=== PATIENT | male | born 1945 | race Caucasian/White ===

== ENCOUNTER 2020-07-02 05:53 | Day surgery (SDC) | payer OTHER ==
[2020-06-25 11:00] LABS: BASOPHILS % (AUTO) 0.5 % (0.0-5.0); EOSINOPHILS % (AUTO) 2.7 % (0.0-8.0); LYMPHOCYTES % (AUTO) 23.4 % (21.0-51.0); MEAN CORPUSCULAR HEMOGLOBIN 30.5 pg (27.0-33.0); MEAN CORPUSCULAR HGB CONC 32.6 g/dL (32.0-36.0); MEAN CORPUSCULAR VOLUME 93.6 fL (79-99); NEUTROPHILS % (AUTO) 63.1 % (40.0-77.0); PLATELET COUNT (AUTO) 252 K/uL (130-400); RED BLOOD CELL COUNT(AUTO) 4.06 MIL/uL (4.50-6.20); RED CELL DISTRIBUTION WIDTH 14.4 % (11.0-15.5); WHITE BLOOD COUNT (AUTO) 7.4 K/uL (4.8-10.8)
[2020-06-25 11:07] LABS: CREATININE 0.8 mg/dL (0.5-1.5); POTASSIUM 4.4 mmol/L (3.5-5.1)
--- NOTE | 2020-06-30 16:07 | NUR ---
PT POSITIVE COVID RESULT REPORTED TO [facility] INFECTION CONTROL. PT HAS HAD COVID IN MAY. PT IS NOT SYMPTOMATIC. PT OK TO PROCEED WITH SURGERY.
[2020-07-01 08:49] VITALS: BP 145/74
[~2020-07-02] VITALS: Ht 167.6 cm; Wt 86.5 kg
[2020-07-02] VITALS (16 sets, daily range): BP systolic 83–118; BP diastolic 40–69
[~2020-07-02 05:53] MED LIST: ASPI-556 PO; GLUC100019 PO; LATA7.5D OU; LISI-613 PO; METO25TA6 PO; RANITIDINE PO; SILD20TA14 PO; TIMO.25OS OU; VIT1CAPS47 PO
[2020-07-02] MEDS ORDERED: CEFAZOLIN SODIUM 1 GM VIAL ONE (06:36)
[2020-07-02] MEDS ORDERED: SODIUM CHLORIDE 0.9% 10 ML VIAL ONE (06:36)
[2020-07-02] MEDS ORDERED: SODIUM CHLORIDE 0.9% 1000ML 1,000 ML IV ONE (06:36)
[2020-07-02] MEDS: CEFAZOLIN SODIUM 1 GM VIAL IVP ONE ×2 (07:02→08:11)
[2020-07-02] MEDS ORDERED: SUCCINYLCHOLINE CHLORIDE 20 MG/ML 10 ML VIAL ONE (07:07)
[2020-07-02] MEDS ORDERED: LIDOCAINE PF 2% 5ML ABBOJECT ONE (07:07)
[2020-07-02] MEDS ORDERED: DEXAMETHASONE SOD PHOSPHATE 10MG/ML 1ML VIAL ONE (07:07)
[2020-07-02] MEDS ORDERED: MIDAZOLAM HCL 1 MG/ML 2ML VIAL ONE (07:08)
[2020-07-02] MEDS ORDERED: PROPOFOL 10 MG/ML 20ML VIAL IV ONE (07:08)
[2020-07-02] MEDS ORDERED: ONDANSETRON HCL 4 MG/2 ML VIAL ONE (07:08)
[2020-07-02] MEDS ORDERED: GLYCOPYRROLATE 1 MG/5 ML SYRINGE ONE (07:08)
[2020-07-02] MEDS ORDERED: NEOSTIGMINE 5MG/5ML SYR IV ONE (07:08)
[2020-07-02] MEDS ORDERED: FENTANYL CITRATE PF 50 MCG/1 ML 2ML VIAL ONE (07:09)
[2020-07-02] MEDS ORDERED: ROCURONIUM 10MG/1ML SYR 10 MG/ML ML ONE (07:09)
[2020-07-02] MEDS ORDERED: PHENYLEPHRINE HCL 10 MG/ML 1ML VIAL IV ONE (08:54)
[2020-07-02] MEDS ORDERED: IBUP-2070 PO (09:16)
[2020-07-02] MEDS ORDERED: CEPH500B PO (09:16)
[2020-07-02] MEDS ORDERED: ACET1TAB25 PO (09:16)
--- NOTE | 2020-07-02 10:10 | NUR ---
PATIENT ARRIVED TO DAY PATIENT VIA STRETCHER BY GUANACO LEVINE. PATIENT AAOX3, VITAL SIGNS STABLE, DENIES ANY PAIN AT THIS TIME. MAIKEL WRAP IN PLACE TO LEFT KNEE, DRY/INTACT.
--- NOTE | 2020-07-02 10:40 | NUR ---
PATIENT DISCHARGED FROM FACILITY VIA WHEELCHAIR BY NURSE. PATIENT ASSISTED INTO PRIVATE VEHICLE DRIVEN BY SPOUSE.
[2020-07-02 13:58] LABS: APPEARANCE BODY FLUID SLIGHTLY CLOUDY (CLEAR); BODY FLUID WBC 18 /cu. mm.; COLOR,BODY FLUID LT YELLOW (LT YELLOW); SPECIMENTYPE,BODY FLUID ASPIRATE; TOTAL VOLUME,BODY FLUID 1 mL
[2020-07-02 14:00] LABS: BODY FLUID RBC 905 /cu. mm.
[2020-07-02 14:03] LABS: BF LYMPHOCYTE 33 %; BF MONOCYTE 32 %
== END 2020-07-02 10:40 | disposition home or self-care (01) ==
LOC: DAH 05:53
PROVIDERS: ATTEND Orthopaedic Surgery
DX: M25.562 Pain in left knee (principal); G89.29 Other chronic pain; U07.1 COVID-19; I10 Essential (primary) hypertension; I25.10 Atherosclerotic heart disease of native coronary artery without angina pectoris; E11.9 Type 2 diabetes mellitus without complications; E78.5 Hyperlipidemia, unspecified; I48.19 Other persistent atrial fibrillation; Z88.8 Allergy status to other drugs, medicaments and biological substances; Z96.652 Presence of left artificial knee joint; Z98.890 Other specified postprocedural states; Z79.01 Long term (current) use of anticoagulants; Z85.828 Personal history of other malignant neoplasm of skin; Z95.5 Presence of coronary angioplasty implant and graft; Z90.49 Acquired absence of other specified parts of digestive tract; Z82.49 Family history of ischemic heart disease and other diseases of the circulatory system; Z72.89 Other problems related to lifestyle; Z79.899 Other long term (current) drug therapy
CPT/HCPCS: 27334; 29873; 36415; 80048; 82948 ×2; 85025; 87071; 87076; 87205; 89051; A4215; A4221; A4222; A4223 ×2; A4606; A4649 ×3; A4657; A4663; A4930; A6223; C9803; J0330; J0690; J1100; J2001; J2250; J2370; J2405; J2704; J2710; J3010; J3490; J7030; U0003

== ENCOUNTER 2020-09-01 06:47 | Day surgery (SDC) | payer OTHER ==
[2020-08-29 09:24] LABS: BASOPHILS % (AUTO) 0.9 % (0.0-5.0); EOSINOPHILS % (AUTO) 4.3 % (0.0-8.0); HEMATOCRIT 43.2 % (42-54); LYMPHOCYTES % (AUTO) 33.3 % (21.0-51.0); MEAN CORPUSCULAR HEMOGLOBIN 30.3 pg (27.0-33.0); MEAN CORPUSCULAR HGB CONC 32.6 g/dL (32.0-36.0); MEAN CORPUSCULAR VOLUME 92.9 fL (79-99); MONOCYTES % (AUTO) 10.4 % (3.0-13.0); NEUTROPHILS % (AUTO) 50.9 % (40.0-77.0); PLATELET COUNT (AUTO) 243 K/uL (130-400); RED BLOOD CELL COUNT(AUTO) 4.65 MIL/uL (4.50-6.20); RED CELL DISTRIBUTION WIDTH 13.8 % (11.0-15.5); WHITE BLOOD COUNT (AUTO) 5.9 K/uL (4.8-10.8)
[2020-08-29 09:34] LABS: POTASSIUM 4.1 mmol/L (3.5-5.1)
[2020-08-29 13:44] VITALS: BP 136/80
[~2020-09-01] VITALS: Ht 165.1 cm; Wt 86.2 kg
[2020-09-01] VITALS (11 sets, daily range): BP systolic 121–135; BP diastolic 66–82
[2020-09-01] MEDS: CEFAZOLIN SODIUM 1 GM VIAL IVP SCH ×3 (05:00→09:25)
[~2020-09-01 06:47] MED LIST changes: +ACET-2247 PO; -ASPI-556 PO; +GLUC-145 PO; -GLUC100019 PO; -LISI-613 PO; +LISI10TA24 PO; +OMEP20CA12 PO; -RANITIDINE PO; -SILD20TA14 PO
[2020-09-01] MEDS ORDERED: SODIUM CHLORIDE 0.9% 10 ML VIAL ONE (07:06)
[2020-09-01] MEDS ORDERED: MIDAZOLAM HCL 1 MG/ML 2ML VIAL ONE (07:48)
[2020-09-01] MEDS ORDERED: FENTANYL CITRATE PF 50 MCG/1 ML 2ML VIAL ONE (07:49)
[2020-09-01] MEDS ORDERED: LIDOCAINE HCL-MPF 0.5% 50ML VIAL IJ ONE (07:50)
[2020-09-01] MEDS ORDERED: SODIUM CHLORIDE 0.9% 1000ML 1,000 ML IV ONE (08:24)
[2020-09-01] MEDS ORDERED: BUPIVACAINE/PF 0.5% 30ML VIAL ONE (09:26)
[2020-09-01] MEDS ORDERED: CEFAZOLIN SODIUM 1 GM VIAL ONE (09:26)
[2020-09-01] MEDS ORDERED: CEPH500B PO (10:44)
[2020-09-01] MEDS ORDERED: IBUP-2071 PO (10:44)
== END 2020-09-01 11:30 | disposition home or self-care (01) ==
LOC: DAH 06:47
PROVIDERS: ATTEND Orthopaedic Surgery
DX: G56.02 Carpal tunnel syndrome, left upper limb (principal); M25.642 Stiffness of left hand, not elsewhere classified; I10 Essential (primary) hypertension; I25.10 Atherosclerotic heart disease of native coronary artery without angina pectoris; I48.91 Unspecified atrial fibrillation; E78.5 Hyperlipidemia, unspecified; M19.90 Unspecified osteoarthritis, unspecified site; E11.9 Type 2 diabetes mellitus without complications; I44.0 Atrioventricular block, first degree; Z95.5 Presence of coronary angioplasty implant and graft; Z88.8 Allergy status to other drugs, medicaments and biological substances; Z79.82 Long term (current) use of aspirin; Z79.899 Other long term (current) drug therapy; Z98.890 Other specified postprocedural states; Z85.828 Personal history of other malignant neoplasm of skin; Z79.01 Long term (current) use of anticoagulants; Z90.49 Acquired absence of other specified parts of digestive tract; Z82.49 Family history of ischemic heart disease and other diseases of the circulatory system
CPT/HCPCS: 36415; 64721; 80048; 82948 ×2; 85025; 93005; A4215; A4221; A4222; A4223 ×2; A4565; A4663; A4930; A6223; J0690 ×2; J2250; J3010; J3490 ×2; J7030